=== PATIENT | female | born 1985 | race African-American/Black ===

== ENCOUNTER → 2017-08-14 13:50 | Outpatient (CLI) | payer MEDICAID, SELFPAY ==
[2017-08-14 17:40] LABS: Chlamydia Trachomatis by PCR Negative (Negative); Neisserai gonorrhoeae by PCR Negative (Negative); Probe Check PASS; Sample Adequacy Control PASS; Specimen Processing Control PASS
[2017-08-15 11:24] LABS: HIV - WCH Non-Reactive (Nonreactive)
[2017-08-16 13:52] LABS: HEPATITIS B SURFACE AG Negative (Negative); Hep C Antibodies <0.1 s/co ratio (0.0-0.9)
[2017-08-17 01:20] LABS: Rapid Plasmin Reagin (RPR) NONREACTIVE (NONREACTIVE)
[2017-08-17 11:55] LABS: HPV Reflexed? NOT INDICATED
== END ==
PROVIDERS: Visit Provider Obstetrics & Gynecology
DX: Z12.4 Encounter for screening for malignant neoplasm of cervix (principal); Z12.72 Encounter for screening for malignant neoplasm of vagina; Z11.3 Encounter for screening for infections with a predominantly sexual mode of transmission
CPT/HCPCS: 36415; 86592; 86703; 86803; 87340; 87491; 87591; 88175; G0145

== ENCOUNTER → 2017-09-27 16:03 | Outpatient (CLI) | payer MEDICAID, SELFPAY | PROVIDERS: Visit Provider Otolaryngology | DX: H92.10 Otorrhea, unspecified ear (principal) | CPT/HCPCS: 87070; 87075; 87077; 87186; 87205 ==

== ENCOUNTER 2018-01-16 07:48 | Emergency (ER) | payer MEDICAID, SELFPAY ==
[2018-01-16 07:50] VITALS: BP 150/93; PULSE 77; RESP 18; TEMP 36.7; O2SAT 99; BMI 48.9
--- NOTE | 2018-01-16 08:05 | EKG12_ITS ---
Test Reason : Blood Pressure : / mmHG Vent. Rate : 080 BPM Atrial Rate : 080 BPM P-R Int : 200 ms QRS Dur : 088 ms QT Int : 386 ms P-R-T Axes : 050 059 015 degrees QTc Int : 445 ms Normal sinus rhythm Normal ECG Confirmed by JOSE D PEDRO, MAYA ([id number]), staff editor ADELAIDE BURGESS ([id number] on 01/18/2018 1:22:14 PM Referred By: SHAMAR Confirmed By:MAYA JEFFERY MD
--- NOTE | 2018-01-16 08:06 | ED.VISSUMM ---
- ER Visit Summary Date of Service: 01/16/18 Chief Complaint: Inability to speak History of Present Illness: The patient is a 32 F who presents via EMS after neighbors called with concern for possible overdose. Per EMS patient was awake and alert with eyes open sitting on the end of the bed when they arrived but will not speak. Patient communicates by typing on her phone. She states that she woke up at 5 AM and had a nightmare that her kids were murdered. She went to the bathroom but does not know what happened since then. She is complaining of a headache. She has no other complaints. She cannot talk. She types that she wants to but she cannot. History limited secondary to patient not talking. Patient denies being on any medications for psychiatric conditions at this time. Physical Examination: Vital signs: afebrile, hemodynamically stable, no hypoxia on room air General: well nourished, well developed, in no distress, sitting in bed awake and alert Skin: warm, dry, no rash, no pallor HEENT: normocephalic and atraumatic; PERRL, EOMI, moist mucous membranes Cardiovascular: regular rate and rhythm without murmurs, no peripheral edema, 2+ pulses all distal extremities Respiratory: No increased work of breathing, lungs are clear to auscultation bilaterally, no rales, rhonchi or wheezing Abdominal: Abdomen is soft, nontender with normoactive bowel sounds, no guarding or rebound, no masses MSK: Moves all extremities, no deformities, normal strength Neuro: No facial droop, sensation and motor function intact and symmetric, aphasic Test Results: Abnormal Lab Results 01/16/18 01/16/18 01/16/18 08:22 08:22 08:22 WBC 9.4 RBC 4.81 Hgb 14.8 Hct 42.6 MCV 88.6 MCH 30.8 MCHC 34.7 RDW 12.7 RDW Differential 40.9 Plt Count 244 MPV 10.9 Immature Gran % (Auto) 0.200 Neut % (Auto) 66.3 Lymph % (Auto) 27.8 [place] % (Auto) 3.4 Eos % (Auto) 2.1 Baso % (Auto) 0.2 Absolute Neuts (auto) 6.2 Absolute Lymphs (auto) 2.60 Total Counted Not Reportable Sodium 139 Potassium 3.6 Chloride 107 Carbon Dioxide 25.0 Anion Gap 7 BUN 11 Creatinine 0.79 Estim Creat Clear Calc 81.61 Est GFR (MDRD) Af Amer 110 Est GFR (MDRD) Non-Af 91 BUN/Creatinine Ratio 14.0 Glucose 103 Calcium 8.2 L Total Bilirubin 0.20 AST 12 L ALT 28 Alkaline Phosphatase 87 Total Protein 7.3 Albumin 3.4 Globulin 3.9 Albumin/Globulin Ratio 0.9 TSH 1.22 Serum , Qual Urine Color Urine Clarity Urine pH Ur Specific [place] Urine Protein Urine Glucose (UA) Urine Ketones Urine Occult Blood Urine Nitrite Urine Bilirubin Urine Urobilinogen Ur Leukocyte Esterase Urine RBC Urine WBC Ur Squamous Epith Cells Urine Bacteria Urine Mucus Urine Opiates Screen Urine Methadone Screen Ur Barbiturates Screen Ur Phencyclidine Scrn Ur Amphetamines Screen U Methamphetamin-MDMA U Benzodiazepines Scrn Urine Cocaine Screen U Cannabinoids Screen Ur Drug Screen Comment Ethyl Alcohol < 3.0 01/16/18 01/16/18 01/16/18 08:22 08:30 08:30 WBC RBC Hgb Hct MCV MCH MCHC RDW RDW Differential Plt Count MPV Immature Gran % (Auto) Neut % (Auto) Lymph % (Auto) [place] % (Auto) Eos % (Auto) Baso % (Auto) Absolute Neuts (auto) Absolute Lymphs (auto) Total Counted Sodium Potassium Chloride Carbon Dioxide Anion Gap BUN Creatinine Estim Creat Clear Calc Est GFR (MDRD) Af Amer Est GFR (MDRD) Non-Af BUN/Creatinine Ratio Glucose Calcium Total Bilirubin AST ALT Alkaline Phosphatase Total Protein Albumin Globulin Albumin/Globulin Ratio TSH Serum , Qual NEGATIVE Urine Color Yellow Urine Clarity Sl. Cloudy Urine pH 7.0 Ur Specific [place] 1.010 Urine Protein Negative Urine Glucose (UA) Normal Urine Ketones Negative Urine Occult Blood Negative Urine Nitrite Negative Urine Bilirubin Negative Urine Urobilinogen Normal Ur Leukocyte Esterase Negative Urine RBC 0 SEEN Urine WBC 0 SEEN Ur Squamous Epith Cells 0-5 SEEN Urine Bacteria RARE Urine Mucus 0 SEEN Urine Opiates Screen NEGATIVE Urine Methadone Screen NEGATIVE Ur Barbiturates Screen NEGATIVE Ur Phencyclidine Scrn NEGATIVE Ur Amphetamines Screen NEGATIVE U Methamphetamin-MDMA NEGATIVE U Benzodiazepines Scrn NEGATIVE Urine Cocaine Screen NEGATIVE U Cannabinoids Screen NEGATIVE Ur Drug Screen Comment Ethyl Alcohol Emergency Department Course and Treatment: Patient presents for evaluation after neighbors were concerned for overdose and patient states she cannot speak. I asked patient to cough as this does not involve speaking, and she shook her head that she could not do that either. This does not appear to be a neurologic aphasia, as that would not affect patient's ability to force a cough or make nonvocal sounds. Workup was performed to evaluate for possible causes of patient's change in mental status and inability to speak, including tox workup and a head CT due to the complaint of headache. During workup, patient was able to ambulate to the bathroom without any difficulty and was coughing in her room. Nurse then observed the patient talking on her phone with her mother. On reevaluation, patient speech was fluent and she had no difficulty speaking. She feels she was having difficulty vocalizing due to the disturbing dream she had about her children. She states her children are safe with her aunt and uncle. Her neighbors knew to call 911 because the patient was texting them. Patient has no complaints at this time. She denies any substance use or overdose. She has no focal neuro deficits. CT scan of the head was canceled. Labs showed no abnormalities, including negative tox and alcohol, negative . Patient was given something to eat complained of being hungry. Patient will be discharged home and is to follow-up with her primary care doctor. Treatment Plan: [] Disposition: [] Impression: functional mutism, resolved This note was generated with [employer] dictation software. It may contain incorrect words, spelling, and punctuation that were not noted in review of the chart prior to signing ED Disposition - Plan for ED Patient: Disposition: Home or Assisted Living Chief Complaint: Alt LOC Instructions: ED Confusion Referrals: Hailee Bain, DO [NON-STAFF] - 3-5 Days if not improving Additional Instructions: Please continue any medications you have been prescribed by your doctor. Follow-up with your doctor within 1 week for reevaluation. If you have any worsening of your condition or any new concerning symptoms, please return immediately to the emergency department for another evaluation.
[2018-01-16 08:36] LABS: Absolute Neutrophil Count 6.2 X10^3/uL (2.0-7.7); Basophil# 0.02 X10^3/uL; Basophil% 0.2 % (0-1); Eosinophils% 2.1 % (0-5); Hematocrit 42.6 % (37-47); Hemoglobin 14.8 g/dl (12.0-15.0); Lymphocyte % 27.8 % (19-41); Mean Corp Hgb Conc 34.7 g/gl (32-36); Mean Corpuscular Hgb 30.8 pg (27.0-32.0); Mean Corpuscular Volume 88.6 fL (81-99); Mean Platelet Vol. 10.9 fl (6.2-12.0); Monocyte# 0.32 X10^3/uL; Monocyte% 3.4 % (0-10); Neutrophil # 6.19 X10^3/uL (2.7-7.7); Neutrophil % 66.3 % (47-70); POSITIVE COUNT NO; POSITIVE DIFFERENTIAL NO; POSITIVE MORPHOLOGY NO; Platelet Count 244 K/mm3 (150-450); RBC Distribution Width CV 12.7 % (11.6-14.6); RBC Distribution Width SD 40.9 fl (35.1-43.9); Red Blood Count 4.81 M/mm3 (4.2-5.4); White Blood Count 9.4 K/mm3 (4.4-11.0)
--- NOTE | 2018-01-16 08:40 | ED.DEP ---
ED Disposition - Plan for ED Patient: Disposition: Home or Assisted Living Chief Complaint: Alt LOC Instructions: ED Confusion Referrals: Hailee Bain, [NON-STAFF] - 3-5 Days if not improving Additional Instructions: Please continue any medications you have been prescribed by your doctor. Follow-up with your doctor within 1 week for reevaluation. If you have any worsening of your condition or any new concerning symptoms, please return immediately to the emergency department for another evaluation.
[2018-01-16 08:42] LABS: Mucous, Urine 0 SEEN /hpf (<or=2+); Red Blood Cells-Urine 0 SEEN /hpf (0-5); White Blood Cells 0 SEEN /hpf (0-5)
[2018-01-16 08:44] LABS: Color, Urine Yellow (Yellow); Glucose, Dipstick Normal (Normal); Ketone-Dipstick Negative (Negative); Leukocyte Esterase-Dipstick Negative /ul (Negative); Nitrite-Dipstick Negative (Negative); Occult Blood-Urine Negative /ul (Negative); Protein-Dipstick Negative (Negative); Urine Bilirubin Dipstick Negative (Negative); Urine Clarity Sl. Cloudy (Clear); Urine Urobilinogen Normal (Normal)
[2018-01-16 08:49] LABS: Bacteria RARE /hpf (None Seen); Squamous Epithelial Cells - UA 0-5 SEEN /hpf (5-10)
[2018-01-16 08:57] LABS: ALB/GLOB Ratio 0.9 RATIO (0.9-2.4); AST(SGOT) 12 U/L (15-37); Alanine Aminotransfer ALT/SGPT 28 U/L (13-56); Albumin, Serum 3.4 g/dL (3.2-5.0); Alkaline Phosphatase 87 U/L (45-117); Anion Gap 7 (5-15); BUN 11 mg/dL (7-18); Calcium,Total 8.2 mg/dL (8.5-10.1); Chloride 107 mmol/L (98-107); Creatinine, Serum 0.79 mg/dL (0.55-1.02); EST Glomerular Filtration Rate 91 mL/min (>60); Est Glom Filt Rate - Afr Amer 110 mL/min (>60); Estimated Creatinine Clearance 81.61 ml/min; Globulin 3.9 g/dL (2.2-4.2); Glucose 103 mg/dL (74-106); Potassium 3.6 mmol/L (3.5-5.1); Pregnancy, Serum, hCG Quali. NEGATIVE Negative (0-9 Nonpreg); Protein, Total 7.3 g/dL (6.4-8.2); Sodium Level 139 mmol/L (136-145); Thyroid Stim Hormone (TSH) 1.22 uIU/mL (0.358-3.74)
[2018-01-16 08:57] LABS: Amphetamine Urine VISTA NEGATIVE (<1000 ng/mL); Barbiturate Urine VISTA NEGATIVE (< 200 ng/mL); Benzodiazepine Urine VISTA NEGATIVE (< 200 ng/mL); Cocaine Urine VISTA NEGATIVE (< 300 ng/mL); Ecstacy Urine VISTA NEGATIVE (< 500 ng/mL); Methadone Urine VISTA NEGATIVE (< 300 ng/mL); PCP Urine VISTA NEGATIVE (< 25 ng/mL); THC Urine VISTA NEGATIVE (< 50 ng/mL); Vista UDS pH Range 6
[2018-01-16 09:00] LABS: Alcohol, Blood (Medical)-Serum < 3.0 mg/dL
== END 2018-01-16 09:12 | disposition home or self-care (01) ==
PROVIDERS: Emergency Provider Emergency Medicine
DX: R47.01 Aphasia (principal); R51 Headache; E66.9 Obesity, unspecified; Z68.42 Body mass index [BMI] 45.0-49.9, adult
CPT/HCPCS: 80053; 80307; 80320; 81001; 84443; 84703; 85025; 93005; 99284; A4216; G0480

== ENCOUNTER → 2018-01-17 13:35 | Outpatient (CLI) | payer MEDICAID, SELFPAY ==
[2018-01-17 15:27] LABS: Chlamydia Trachomatis by PCR Negative (Negative); Neisserai gonorrhoeae by PCR Negative (Negative); Probe Check PASS; Sample Adequacy Control PASS; Specimen Processing Control PASS
== END ==
PROVIDERS: Visit Provider Obstetrics & Gynecology
DX: Z11.3 Encounter for screening for infections with a predominantly sexual mode of transmission (principal)
CPT/HCPCS: 87491; 87591

== ENCOUNTER 2019-03-23 16:41 | Emergency (ER) | payer MEDICAID, SELFPAY ==
--- NOTE | 2019-03-23 16:43 | EKG12_ITS ---
Test Reason : CP Blood Pressure : / mmHG Vent. Rate : 076 BPM Atrial Rate : 076 BPM P-R Int : 184 ms QRS Dur : 086 ms QT Int : 370 ms P-R-T Axes : 046 066 021 degrees QTc Int : 416 ms Normal sinus rhythm Normal ECG Confirmed by MARILEE TRUJILLO MD ([id number]), food expeditor ADELAIDE BURGESS ([id number]) on 03/25/2019 3:32:45 PM Referred By: DC Confirmed By:MARILEE TRUJILLO MD
[2019-03-23 16:44] VITALS: BP 150/94; PULSE 88; RESP 19; TEMP 36.7; O2SAT 97; BMI 49.1
--- NOTE | 2019-03-23 16:58 | RAD_ITS ---
STUDY: X-RAY CHEST REASON FOR EXAM: Female, 33 years old. sharp midsternal CP -- HX ASTHMA TECHNIQUE: PA and lateral views of the chest. COMPARISON: None. FINDINGS: EKG leads project over the chest. The lungs are clear and expanded. There is no demonstrated pleural abnormality. Normal size heart. Normal mediastinum and gill. Normal visualized pulmonary arteries. Normal visualized aortic arch and descending thoracic aorta. Normal visualized thoracic spine. Normal visualized ribs, clavicles, and shoulders. There is no demonstrated abnormality of the visualized soft tissue structures of the upper abdomen. RAD/Chest PA and Lateral IMPRESSION: No acute cardiopulmonary process. Electronically Signed: Darrin Burdick MD ([place]) at 17:39 EST , Service support ,
--- NOTE | 2019-03-23 17:02 | ED.VISSUMM ---
- ER Visit Summary Date of Service: 03/23/19 Chief Complaint: Chest pain History of Present Illness: The patient is a 33 F who presents with chest pain. The pain started while watching TV just prior to arrival. It was midsternal and does not radiate. It was sharp. No other associated symptoms. She never had this before. No history of heart disease, blood clots, or aortic disease. No fever or recent illness. No respiratory symptoms, although she has a history of asthma. She is not on hormones. Denies leg swelling. Denies recent immobilization or travel. She does smoke. Physical Examination: Afebrile and vital signs unremarkable. Alert and oriented. No acute distress. Heart regular. Lungs clear. Skin appears normal. Calf soft and supple. Pulses strong and equal. Test Results: EKG shows sinus rhythm at a rate of 76. No signs of ischemia or infarction pattern. No signs of heart strain or other evidence of PE. Will check a chest x-ray. Results pending. Emergency Department Course and Treatment: Patient presents with atypical chest pain. This sounds somatic, EKG was unremarkable. Chest x-ray pending. Patient declined pain medicine. X-rays negative patient will be discharged. Use [id number] remedies for pain. Follow-up with primary care No ACS, PE, or dissection risk factors. Treatment Plan: As above Disposition: Discharge Impression: 1. Atypical chest pain This note was generated with [employer] dictation software. It may contain incorrect words, spelling, and punctuation that were not noted in review of the chart prior to signing ED Disposition - Plan for ED Patient: Referrals: Care Physician,No Primary [Primary Care Provider] -
[2019-03-23 17:38] VITALS: BP 146/88; PULSE 78; RESP 17; O2SAT 97
--- NOTE | 2019-03-23 18:05 | ED.DEP ---
ED Disposition - Plan for ED Patient: Instructions: CHEST PAIN, Uncertain Cause (Child) Referrals: Care Physician,No Primary [Primary Care Provider] -
[2019-03-23 18:15] VITALS: BP 145/88; PULSE 88; RESP 18; O2SAT 99
== END 2019-03-23 18:15 | disposition home or self-care (01) ==
LOC: ED 17:01
PROVIDERS: Emergency Provider Emergency Medicine
DX: R07.89 Other chest pain (principal); F17.200 Nicotine dependence, unspecified, uncomplicated
CPT/HCPCS: 71046; 93005; 99284; A4216

== ENCOUNTER 2019-06-23 12:47 | Emergency (ER) | payer MEDICAID, SELFPAY ==
[2019-06-23 12:48] VITALS: BP 122/66; PULSE 95; RESP 18; TEMP 37.1; O2SAT 100; BMI 47.3
--- NOTE | 2019-06-23 13:06 | ED.VIS.GEN ---
History of Present Illness Chief Complaint: Cold Sx Narrative: Patient presents with right ear pain of 3-day duration. No drainage from the ear. She notes pain when she touches her ear. She states that today she started having some sinus congestion and clear drainage. No reported fevers. Past Medical History - Allergies and Home Meds Allergies/Adverse Reactions: Allergies codeine Adverse Reaction (Verified 06/23/19 12:51) Vomiting Penicillins [PCN] Adverse Reaction (Verified 06/23/19 12:51) Upset Stomach Primary Care Physician: Care Physician,No Primary [Primary Care Provider] - Smoking Status: Current every day smoker Review of Systems General: Denies: Chills, Fever, Sweats Eyes: Denies: Visual changes - bilaterally, Diplopia ENT: Reports: Right ear pain, Rhinorrhea. Denies: Sore throat Cardiovascular: Denies: Chest pain, Palpitations Respiratory: Denies: Dyspnea, Cough, Dyspnea on exertion Gastrointestinal: Denies: Abdominal pain, Nausea, Vomiting, Diarrhea, Melena, Hematochezia Genitourinary: Denies: Dysuria, Hematuria, Frequency Musculoskeletal: Denies: Back pain, Extremity Pain Skin: Denies: Rash, Wounds Neurological: Denies: Headache, Weakness, Numbness Physical Exam Vital Signs/Narrative: Vital Signs Temp Pulse Resp BP Pulse Ox 06/23/19 12:48 98.8 F 95 18 122/66 H 100 Inital Vital Signs reviewed: Yes General: Well nourished, Well developed, No Acute Distress Head: Normocephalic, Atraumatic Eyes: Perrl, EOMI ENT: Moist mucous membranes, Nasal congestion, - - Left tympanic membrane and ear canal are normal. Right ear canal demonstrates debris and swelling of the canal. There is fluid at the level of the tympanic membrane with bubbles that appear when she Valsalva's. She has pain with movement of the pinna. Neck: Supple, Nontender Cardiovascular: Regular rate, Regular rhythm, No murmurs Respiratory: No distress, CTA bilaterally, Chest nontender Abdomen: Soft, Nontender, Nondistended, Normal bowel sounds Back: Nontender, Normal Inspection Extremities: Nontender, No edema Skin: Normal color, No rash Neurological: Alert, Oriented x3, Cranial nerves II-XII grossly intact, Normal Strength, Normal Sensation Psychological: Normal affect, Normal Mood Diagnostic/Tx/Re-eval - Medical Decision Making Patient has clear evidence of otitis externa. I cannot see the right tympanic membrane. With closed Valsalva I do see a small amount of air so I will have to presume that this is ruptured tympanic membrane as well. Therefore she will be placed on eardrops and azithromycin. ED Disposition - Plan for ED Patient: Disposition: Home or Assisted Living Diagnosis: Otitis externa, Rupture of tympanic membrane due to otitis media Instructions: ED Otitis Externa, ED Rupture Eardrum Infec Prescriptions: Ciprofloxacin HCl/Dexameth [Ciprodex Otic Suspension] 4 drp OTIC (EAR) BID 7 Days #1 bottle Prescription Printed Azithromycin [Zithromax Z-Ryley] 250 mg PO UD #1 box Prescription Printed Referrals: Dominick Perdomo MD [STAFF PHYSICIAN] - As Needed
[2019-06-23 13:26] VITALS: BP 122/66; PULSE 95; RESP 18; TEMP 37.1; O2SAT 100
== END 2019-06-23 13:31 | disposition home or self-care (01) ==
LOC: ED 13:13
PROVIDERS: Emergency Provider Emergency Medicine
DX: H60.91 Unspecified otitis externa, right ear (principal); H66.91 Otitis media, unspecified, right ear; H72.91 Unspecified perforation of tympanic membrane, right ear; F17.200 Nicotine dependence, unspecified, uncomplicated
CPT/HCPCS: 99282

== ENCOUNTER 2020-05-28 13:10 | Emergency (ER) | payer MEDICAID, SELFPAY ==
[2020-05-28 13:11] VITALS: BP 148/83; PULSE 101; RESP 16; TEMP 36.1; O2SAT 97; BMI 48.4
[2020-05-28] MEDS: predniSONE 20 MG Tablet 60 MG PO (13:48)
--- NOTE | 2020-05-28 13:56 | ED.DCSUM_ITS ---
History of Present Illness Chief Complaint: Allergic Reaction Informant: Patient Onset: Today Narrative: Patient presents with concerns for allergic reaction to dorzolamide. Patient had a corneal transplant in February. She saw her rolling machine operator automatic at [facility] yesterday who started her on dorzolamide drops secondary to increased pressure in her left eye. Patient used the drops 3 times yesterday and twice today. She states she feels like her face is swollen and her throat is slightly tight. She denies any other changes or new products. Past Medical History - Allergies and Home Meds Allergies/Adverse Reactions: Allergies diphenhydramine [From Benadryl] Allergy (Verified 05/28/20 13:14) Hives codeine Adverse Reaction (Verified 05/28/20 13:14) Vomiting dorzolamide Adverse Reaction (Verified 05/28/20 13:14) Swelling Penicillins [PCN] Adverse Reaction (Verified 05/28/20 13:14) Upset Stomach Primary Care Physician: Care Physician,No Primary [Primary Care Provider] - Prior records reviewed: Yes Past Medical History: - - Corneal transplant left eye Smoking Status: Current every day smoker Review of Systems General: Denies: Chills, Fever Eyes: Denies: Visual changes - bilaterally ENT: Reports: - - Facial swelling. Denies: Bilateral ear pain Cardiovascular: Denies: Chest pain Respiratory: Denies: Dyspnea, Cough Gastrointestinal: Denies: Abdominal pain, Nausea, Vomiting, Diarrhea Musculoskeletal: Denies: Extremity Pain Skin: Denies: Rash Neurological: Denies: Headache Hematologic: Denies: Easy bruising, Easy bleeding Allergy: Denies: Uticaria Physical Exam Vital Signs/Narrative: Vital Signs Temp Pulse Resp BP Pulse Ox 05/28/20 13:11 97 F L 101 H 16 148/83 H 97 Inital Vital Signs reviewed: Yes General: Well nourished, Well developed Head: Normocephalic Eyes: Perrl, EOMI, - - No injection. No eyelid edema. ENT: Moist mucous membranes, - - Posterior pharynx exam is normal. Mild facial edema. No bony tenderness. No erythema or sign of abscess. Neck: Supple Cardiovascular: Regular rate, Regular rhythm Respiratory: No distress, CTA bilaterally Abdomen: Soft, Nontender Skin: Normal color Neurological: Alert, Oriented x3 Psychological: Normal affect Diagnostic/Tx/Re-eval - Medical Decision Making Patient was given a dose of p.o. prednisone here she does have a Benadryl allergy. I spoke with the patient's rolling machine operator automatic, Dr. Weaver at the [facility]. He states he also change this patient's prednisone to dexamethasone secondary to cost. He agrees that it would be unlikely for this to cause an allergic reaction switching from one form of steroid to another. He asked that the patient stop the dorzolamide and instead be written for brimonidine. Patient be observed in the emergency room and is long as symptoms are not progressing will be discharged with her new prescriptions. ED Disposition - Plan for ED Patient: Disposition: Home or Assisted Living Diagnosis: Allergic reaction Instructions: ED ADVERSE DRUG REACTION Allergic Prescriptions: Brimonidine Tartrate 0.2% [Brimonidine 0.2% 5Ml Bottle] 1 drp LEFT EYE BID #1 bottle Transmission Status: Pending to [id number] Additional Instructions: Follow-up with Dr Weaver as previously planned.
[2020-05-28 14:46] VITALS: BP 122/82; PULSE 87; RESP 15
== END 2020-05-28 14:46 | disposition home or self-care (01) ==
PROVIDERS: Emergency Provider Emergency Medicine
DX: R22.0 Localized swelling, mass and lump, head (principal); R09.89 Other specified symptoms and signs involving the circulatory and respiratory systems; T49.5X5A Adverse effect of ophthalmological drugs and preparations, initial encounter; F17.200 Nicotine dependence, unspecified, uncomplicated; Z94.7 Corneal transplant status
CPT/HCPCS: 99283